=== PATIENT | female | born 1995 | race African-American/Black ===

== ENCOUNTER 2021-07-15 18:40 | Emergency (ER) | payer BC, OTHER ==
[2021-07-15 19:06] LABS: #Monocytes 0.6 10x3/uL (0.0-1.1); #Neutrophils 5.5 10x3/uL (1.5-8.4); %Basophils 0.3 % (0.0-2.0); %Eosinophils 0.1 % (0.0-6.0); %Lymphocytes 16.5 % (18.0-47.0); %Monocytes 7.8 % (0.0-10.0); Hemoglobin 12.5 g/dL (12.0-15.5); Mean Corpuscular HGB CONC 34.3 g/dL (32.0-36.0); Mean Corpuscular Hemoglobin 30.3 pg (27.0-33.0); Mean Corpuscular Volume 88.1 fl (81.6-98.3); Mean Platelet Volume 11.1 fl (7.4-10.4); Platelet Count 207 10x3/uL (150-450); RBC Distribution Width 13.9 % (11.5-14.5); Red Blood Cell (RBC) Count 4.13 10x6/uL (3.90-5.03); White Blood Cell (WBC) Count 7.3 10x3/uL (3.5-10.5)
[2021-07-15] MEDS ORDERED: diphenhydrAMINE 50 MG/ML VIAL ONE (20:23)
[2021-07-15] MEDS ORDERED: Metoclopramide HCl 10 MG/2 ML VIAL ONE (20:23)
== END 2021-07-15 21:21 | disposition home or self-care (01) ==
LOC: CSHERS 18:40
DX: O21.9 Vomiting of pregnancy, unspecified (principal); O26.851 Spotting complicating pregnancy, first trimester; Z3A.01 Less than 8 weeks gestation of pregnancy
CPT/HCPCS: 36415; 76856; 84702; 85025; 86900; 86901; 96374; 96375; J1200; J2765